=== PATIENT | female | born 1980 | race Caucasian/White ===

== ENCOUNTER 2017-02-28 23:12 | Emergency (ER) | payer OTHER ==
[2017-02-28 23:15] VITALS: BP 97/56; PULSE 75; BMI 23.3
--- NOTE | 2017-02-28 23:42 | PDOC ---
History of Present Illness - General Chief Complaint: Nausea/Vomiting Stated Complaint: FATIGUE Time Seen by Provider: 02/28/17 23:20 - History of Present Illness Initial Comments: 03/01/17 00:08 The patient is a 36 year old female with no significant PMH who presents for evaluation of nausea, vomiting and abdominal pain. The patient reports onset of nausea, vomiting and crampy diffuse abdominal pain beginning today. She reports multiple episodes of non-bilious, non-bloody vomiting throughout the day today. She states that she gets these symptoms once a month around her period, however she reports that they are much worse today prompting her presentation to the ED for evaluation. She reports some subjective fevers, and chills, but denies SOB, chest pain, or changes with urination or bowel movements. Past History - Past Medical History Allergies/Adverse Reactions: Allergies Allergy/AdvReac Type Severity Reaction Status Date / Time No Known Allergies Allergy Verified 02/28/17 23:15 Home Medications: Ambulatory Orders Metformin HCl [Glucophage] 500 mg PO BID #60 tablet 03/01/17 Other medical history: denies - Suicide/Smoking/Psychosocial Hx Smoking History: Current every day smoker Number of Cigarettes Smoked Daily: 10 Information on smoking cessation initiated: No Review of Systems - Review of Systems Comments:: 03/01/17 00:11 Constitutional: Fevers, chills. No fatigue, malaise HEENT: No Rhinorrhea, nasal congestion, Cardiovascular: No chest pain, syncope, palpitations, lightheadedness Respiratory: No Cough, SOB, Hemoptysis, Gastrointestinal:Abdominal pain, nausea, vomiting. No Constipation, Diarrhea, Melena Genitourinary: No Dysuria, Frequency, Urgency, Hesitancy, Hematuria, Flank pain Musculoskeletal: No Myalgia, arthralgia Skin: No rashes, itching, bruising, pallor Neurologic: No Headache, Dizziness, Numbness, Weakness, or Tingling *Physical Exam - Vital Signs Last Vital Signs Temp Pulse Resp BP Pulse Ox 75 18 97/56 99 02/28/17 23:13 02/28/17 23:13 02/28/17 23:13 02/28/17 23:13 - Physical Exam Comments: 03/01/17 00:13 General Appearance: Nourished. In mild Apparent Distress HEENT: EOMI, HARPER. No Pharyngeal Erythema, Tonsillar Exudate, Tonsillar Erythema Neck: No Cervical Lymphadenopathy Respiratory/Chest: Lungs Clear, Normal Breath Sounds. No Crackles, Rales, Rhonchi, Wheezing Cardiovascular: Regular Rhythm, Regular Rate. No Murmur, Gallops, Rubs Gastrointestinal/Abdominal: Normal Bowel Sounds, Soft. Mild epigastric tenderness to palpation. No Guarding, Rebound, Musculoskeletal: No CVA Tenderness Extremity: Normal Capillary Refill Integumentary: Normal Color, Dry, Warm Neurologic: Fully Oriented, Alert, Normal Mood/Affect, Normal Response, ED Treatment Course - LABORATORY CBC & Chemistry Diagram: 03/01/17 00:26 03/01/17 02:10 Medical Decision Making - Medical Decision Making 03/01/17 00:21 The patient is a 36 year old female with no significant PMH who presents for evaluation of nausea, vomiting and abdominal pain. Differential includes but is not limited to: Gastritis, cholecystitis, pancreatitis, metabolic derangement. Given the patient's epigastric tenderness with associated nausea and vomiting, it is likely her symptoms are due to a gastritis or cholecystits. We will obtain a cbc, cmp, lipase, ua, to evaluate for the etiology of her symptoms. We will treat her with zofran and IV fluids and continue to monitor and reassess. 03/01/17 03:38 Cbc is remarkable for an elevated wbc of 16.0. CMP is remarkable for a glucose of 136. UA is remarkable for glucose. Lipase and are negative. We discussed the results with the patient and recommended ct abdomen pelvis to evaluate for pathology. We recommended that she stay for observation here in the hospital for further work up. The patient voiced understanding and wishes to leave AMA. She reports some improvement in her symptoms and states that she will follow up with her primary care provider on friday. We discussed the severe risks with leaving AMA including severe infection and worsening symptoms including . The patient continued to wish to leave AMA. She is alert, oriented x3 and capable of making decisions. The patient signed AMA form. We discussed that we sent metformin to her pharmacy that she needs to take for her high blood sugar. She voiced understanding. *DC/Admit/Observation/Transfer Diagnosis at time of Disposition: Nausea & vomiting Qualifiers: Vomiting type: unspecified Vomiting Intractability: unspecified Qualified Code( s): R11.2 - Nausea with vomiting, unspecified; R11.2 - Nausea with vomiting, unspecified - Discharge Dispostion Disposition: AGAINST MEDICAL ADVICE Condition at time of disposition: Improved - Prescriptions Prescriptions: Metformin HCl [Glucophage] 500 mg PO BID #60 tablet - Patient Instructions Printed Discharge Instructions: DI for Nausea -- Adult
[2017-02-28] MEDS ORDERED: ONDANSETRON 4 MG/2 ML VIAL IVPUSH ONE (23:43)
[2017-02-28] MEDS ORDERED: SODIUM CHLORIDE 1,000 ML IV STA (23:51)
[2017-03-01] MEDS ORDERED: ONDANSETRON 4 MG/2 ML VIAL ONE (00:15)
[2017-03-01 00:35] LABS: BASOPHIL 0.3 % (0-2.0); EOSINOPHIL 0.1 % (0-4.5); MCH 32.2 pg (25.7-33.7); MCHC 34.5 g/dl (32.0-36.0); MEAN CELL VOLUME 93.2 fl (80-96); MEAN PLT VOLUME 8.2 fl (7.5-11.1); NEUTROPHILS 89.6 % (42.8-82.8); PLATELET COUNT 266 K/MM3 (134-434); RDW 13.3 % (11.6-15.6)
[2017-03-01 01:44] LABS: URINE APPEARANCE CLOUDY; URINE BILIRUBIN NEGATIVE (NEGATIVE); URINE BLOOD 3+ (NEGATIVE); URINE COLOR YELLOW; URINE GLUCOSE (UA) 1+ (NEGATIVE); URINE KETONE 2+ (NEGATIVE); URINE NITRITE NEGATIVE (NEGATIVE); URINE PROTEIN 1+ (NEGATIVE); URINE UROBILINOGEN NEGATIVE mg/dL (0.2-1.0)
[2017-03-01 01:48] LABS: URINE BACTERIA RARE /hpf (NONE SEEN); URINE MUCUS RARE; URINE RBC 690 /hpf (0-3); URINE WBC 77 /hpf (3-5)
[2017-03-01 02:37] LABS: ALBUMIN 4.1 g/dl (3.4-5.0); ANION GAP 8 (8-16); BILIRUBIN,TOTAL 0.8 mg/dL (0.2-1.0); CALCIUM 7.9 mg/dL (8.5-10.1); CO2 25 mmol/L (21-32); CREATININE 0.8 mg/dL (0.55-1.02); GLUCOSE,RANDOM 139 mg/dL (74-106); SGOT/AST 18 U/L (15-37); SGPT/ALT 35 U/L (12-78); TOT PROT 7.2 g/dl (6.4-8.2)
[2017-03-01 02:39] LABS: ALK PHOS 76 U/L (45-117)
[2017-03-01] MEDS ORDERED: SODIUM CHLORIDE 0.9% 500 ML INFUS.BAG IV ONE (03:04)
[2017-03-01] MEDS ORDERED: METOCLOPRAMIDE HCL INJECTION 10 MG/2 ML VIAL IVPUSH ONE (03:19)
[2017-03-01] MEDS ORDERED: METOCLOPRAMIDE HCL INJECTION 10 MG/2 ML VIAL ONE (03:21)
[2017-03-01 10:07] LABS: URINE LEUK ESTERASE 1+ (NEGATIVE)
--- NOTE | 2017-03-01 13:03 | EKG ---
Test Reason : Blood Pressure : / mmHG Vent. Rate : 058 BPM Atrial Rate : 058 BPM P-R Int : 098 ms QRS Dur : 080 ms QT Int : 478 ms P-R-T Axes : 050 039 025 degrees QTc Int : 469 ms SINUS BRADYCARDIA WITH SINUS ARRHYTHMIA WITH SHORT TX RSR' OR QR PATTERN IN V1 SUGGESTS RIGHT VENTRICULAR CONDUCTION DELAY OTHERWISE NORMAL ECG NO PREVIOUS ECGS AVAILABLE Confirmed by KENJI MOTA, FIDELIA ([id number] on 03/01/2017 1:03:47 PM Referred By: Confirmed By:FIDELIA PHILLIP MD
== END 2017-03-01 03:37 | disposition left against medical advice (07) ==
LOC: JER 23:12
PROC: 3E0337Z Introduction of Electrolytic and Water Balance Substance into Peripheral Vein, Percutaneous Approach (ICD-10-PCS; principal; 2017-02-28)
PROC: 3E033GC Introduction of Other Therapeutic Substance into Peripheral Vein, Percutaneous Approach (ICD-10-PCS; 2017-02-28)
DX: R11.2 Nausea with vomiting, unspecified (principal)
CPT/HCPCS: 36415; 80053; 81003; 81015; 84702; 85025; 87086; 93005; 93010; 96361; 96374; 99282-25